=== PATIENT | male | born 1970 | race Asian ===

== ENCOUNTER 2019-01-18 13:34 | Outpatient (REF) | payer MEDICAID, SELFPAY ==
[2019-01-18 19:05] LABS: Calculated LDL 200 mg/dL; Cholesterol 279 mg/dL; HDL Cholesterol 54 mg/dL; Triglyceride 125 mg/dL
== END 2019-01-18 13:54 ==
LOC: NCHCN 13:34
PROVIDERS: Visit Provider Family Medicine
DX: Z13.1 Encounter for screening for diabetes mellitus (principal); Z13.220 Encounter for screening for lipoid disorders; Z00.00 Encounter for general adult medical examination without abnormal findings
CPT/HCPCS: 80061; 83036

== ENCOUNTER 2022-09-03 13:34 | Outpatient (REF) | payer MEDICAID, SELFPAY ==
[2022-09-03 16:12] LABS: HGB 13.5 g/dL (13.5-17.5); MCH 21.1 pg (27.0-33.0); MPV 10.2 fL (8.0-11.0); Platelet Count 279 10^3/uL (130-400); RDW 13.9 % (11.8-14.1); RDW-SD 34.1 fL; WBC 7.07 10^3/uL (4.4-10.8)
[2022-09-03 16:36] LABS: Iron 113 ug/dL (65-175); Total Iron Binding Capacity 250 ug/dL (250-450); Transferrin Sat 45 % (20-55)
[2022-09-03 16:37] LABS: Calculated LDL 209 mg/dL (<100); Cholesterol 293 mg/dL (<200); Ferritin 787 ng/mL (26-388); HDL Cholesterol 56 mg/dL (40-60); Triglyceride 142 mg/dL (<150)
[2022-09-03 19:04] LABS: MCV 70 fL (80-95)
== END 2022-09-03 13:35 | disposition home or self-care (01) ==
LOC: NCHCN 13:34
PROVIDERS: PCP Family Medicine; Visit Provider Family Medicine
DX: D50.9 Iron deficiency anemia, unspecified (principal); E78.5 Hyperlipidemia, unspecified
CPT/HCPCS: 80061; 85027; 82728; 83540; 83550

== ENCOUNTER 2022-10-15 11:08 | Emergency (ER) | payer MEDICAID, SELFPAY ==
[2022-10-15 11:10] VITALS: BP 114/85; PULSE 74; RESP 20; TEMP 37; O2SAT 99
--- NOTE | 2022-10-15 11:29 | ED.GENADUL_ITS ---
Discharge Plan Disposition Patient Disposition: Home Condition: Stable Discharge Details Clinical Impression: Lumbar back pain Primary Care Provider: Moses Sarmiento ED Provider: Jose Dickson Home Meds and New Rx's Prescriptions: New cyclobenzaprine 10 mg tablet 10 mg PO TID PRNQty: 20 0RF Discharge Instructions Additional Instructions: your xray today looks normal follow up with your primary care provider within 1-[address] or drink alcohol if you take the prescribed medication as it can make you drowsy you can take 1000mg tylenol and 600mg ibuprofen every 6 hours for pain as needed if you feel more ill, have severe worsening pain or new symptoms such as abdominal pain or difficulty urinating return to the emergency department Medical Decision Making 51 yo male who denies chronic medical problems comes in with 1 month of nontraumatic lower back pain. History obtained using [employer] bilingual interpreter via video chat. He denies known fevers, chills, abdoman pain, n/v. No ivdu, no urinary retention. He localizes the pain to the left lower back and is tender in this area. no saddle anesthesia, normal reflexes in the legs with intact sensation and pulses. Suspect muscle spasm vs strain, will treat with lidocaine patch, toradol and obtain xrays. No findings on exam or history to suggest cauda equina, spinal epidural abscess or osteo. xray unremarkable, pt feels better, discussed results using bilingual interpreter, no new pain or symptoms, advised likely muscle strain vs disc herniation, stable for d/c and advised to f/u with pcp within 1-2 weeks, return precautions given. Google translate used for d/c instructions but unfortunately due to the special characted used in [employer] could not be copied into the d/c instructions on [employer], Differential Diagnosis Differential Diagnosis: strain, sciatica HPI General Mode of arrival: ambulatory . Date/Time Provider Initiated Documentation: 10/15/22 11:09 . Limitations to Documentation: language barrier . Information obtained by: patient . History of Present Illness 51 year old M presents to the emergency department with the chief complaint of lower back pain, described as moderate, Patient started experiencing this week(s) (2) and it has been constant. No relieving factors improve symptom(s), No exacerbating factors reported . Patient notes no other symptoms.. Related Data Home Medications Medication Instructions Recorded Confirmed cyclobenzaprine 10 mg tablet 10 mg PO TID PRN #20 tabs 10/15/22 Previous Rx's Medication Instructions Recorded cyclobenzaprine 10 mg tablet 10 mg PO TID PRN #20 tabs 10/15/22 Allergies Allergy/AdvReac Type Severity Reaction Status Date / Time eggplant Allergy Unknown unknown Verified 10/15/22 11:15 General Stated Complaint: Nk/Back Pain ZEB: 4 Review of Systems All systems reviewed & are unremarkable except as noted in HPI and below Constitutional Constitutional: Denies chills, Denies fever(s) and Denies weakness Cardiovascular Cardiovascular: Denies chest pain and Denies dyspnea Respiratory Respiratory: Denies cough and Denies dyspnea Gastrointestinal Gastrointestinal: Denies abdominal pain, Denies nausea and Denies vomiting Integumentary/Breasts Skin/Breast: Denies rash Neurologic Neurologic: Denies weakness Psychiatric Psychiatric: Denies depression PFSH All Active Problems (Updated 10/15/22 @ 13:34 by Jose Dickson MD) Lumbar back pain (Acute) Epigastric pain (Acute) Blood in stool (Acute) Plantar fasciitis (Acute) Osteoarthritis (Chronic) Medical History (Updated 10/15/22 @ 13:34 by Jose Dickson MD) Nephrolithiasis Family History (Updated 02/01/19 @ 13:54 by Jasmin Tatum MD) Father Diabetes Social History Smoking/Tobacco Use Status: Never Smoking risk assessment performed?: Yes Current gender identity: male Exam Const General: no acute distress Orientation: alert HENMT Head: normal to inspection Ears: external ears normal General nose exam: external nose normal Mouth: moist mucous membranes Eyes General: appearance normal, both eyes and all related structures Neck Neck: normal visual inspection Resp Effort & Inspection: normal respiratory effort and able to speak in complete sentences Cardio Rate: regular rate GI Palpation: soft and nontender Back/Spine/Pelvis Back: no CVA tenderness Skin General skin exam: no rashes or lesions noted Neuro General: patient alert and patient oriented x3 Extrem General: normal to inspection Psych Mental Status: mental status grossly normal Course Vital Signs Vital signs: Vital Signs Temperature 37.0 C 10/15/22 11:10 Pulse 74 10/15/22 11:10 Respiratory Rate 20 10/15/22 11:10 Blood Pressure 114/85 10/15/22 11:10 Pulse Oximetry 99 10/15/22 11:10 Temperature 37.0 C 10/15/22 11:10 Temperature Source Oral 10/15/22 11:10 Pulse 74 10/15/22 11:10 Respiratory Rate 20 10/15/22 11:10 Respiratory Effort Normal 10/15/22 11:16 Blood Pressure 114/85 10/15/22 11:10 Blood Pressure Position Sitting 10/15/22 11:10 Pulse Oximetry 99 10/15/22 11:10 Oxygen Delivery Method Room Air 10/15/22 11:10 Oxygen Flow Rate 0 10/15/22 11:10 Pain Level 6 10/15/22 11:10
--- NOTE | 2022-10-15 11:45 | DI.RAD_ITS ---
Exam(s) XR LUMBAR SPINE COMPLETE EXAM: XR LUMBAR SPINE COMPLETE CLINICAL HISTORY: lumbar pain. TECHNIQUE: 2D digital imaging was performed of the lumbar spine. Five images were obtained. AP, la teral, right oblique, left oblique and L5-S1 spot views were obtained. COMPARISON: No exams were available for comparison FINDINGS: BONES: No fracture or destructive lesion. Small osteophytes are seen at L4-L5. No facet hypertrophy i dentified. There are rudimentary ribs at L1. DISKS: Intervertebral disc spaces are maintained. ALIGNMENT: Lumbar spinal alignment is within normal limits. No spondylolysis or spondylolisthesis. SOFT TISSUE: Normal. IMPRESSION: No acute abnormality. DATA REPOSITORY: RADIATION DOSE DELIVERED:
[2022-10-15] MEDS: Ketorolac 15 MG/ML VIAL IM (12:17)
[2022-10-15] MEDS: Lidocaine 5% Patch 1 PATCH TP (12:17)
== END 2022-10-15 13:45 | disposition home or self-care (01) ==
PROVIDERS: Emergency Provider Emergency Medicine; PCP Family Medicine
DX: M54.50 Low back pain, unspecified (principal)
CPT/HCPCS: 96372; 99284; 72110; J1885

== ENCOUNTER → 2022-11-18 02:45 | Outpatient (CLI) | payer MEDICAID, SELFPAY ==
--- NOTE | 2022-11-18 12:20 | DI.MRI_ITS ---
Exam(s) MR LUMBAR SPINE WO EXAM: MR LUMBAR SPINE WO CLINICAL HISTORY: BACK PAIN, M54.9. TECHNIQUE: Multiplanar multisequence MRI of the Lumbar spine was performed. COMPARISON: CR XR LUMBAR SPINE COMPLETE from 10/15/2022 FINDINGS: There is transitional anatomy here. Vertebral counting will coincide with naming on the recent plain films of 10/15/2022. Conus medullaris is at normal level. There is no evidence of conus mass nor subjacent clumping of in trathecal nerve roots to suggest arachnoiditis. The distal thecal sac appears unremarkable.There is no evidence of Tarlov intrasacral cysts nor other significant findings within the sacral canal Bones:There are no fractures nor ominous osseous lesions in the lumbar vertebral bodies and visualize d sacrum. With respect to the individual levels... T12-L1: Unremarkable L1-2: Normal disc height and signal. No disc herniation nor central canal stenosis.No foraminal steno sis L2-3: Normal disc height. No disc herniation nor central canal stenosis.No foraminal stenosis.No face t arthropathy. L3-4: Normal disc height. No disc herniation or central canal stenosis.No foraminal stenosis.No face t arthropathy. L4-5: Normal disc height. However, there is a posterolateral left disc protrusion in the lateral asp ect of the left lateral recess and floor of the exiting left neural foramen. This extends posteriorl y 3 mm and is approximately 12 mm wide. There is no prominent left neural foraminal stenosis at this level,. Exiting right neural foramen widely patent. Central canal dimensions are lower normal. No significant facet arthropathy evident. L5-S1: Normal disc height. Posteriorly there is broad annular bulging central and right-sided extend ing posteriorly 3 mm and approximately 1.6 cm wide. This slightly indents the thecal sac. Also exte nds into the floor of the exiting left neural foramen. Central canal dimensions exhibit mild stenosi s. The annular bulging does not cause significant foraminal stenosis on the left side. The opposite -exiting right neural foramen is widely patent. No significant facet arthropathy evident. Transitional vertebra-sacrum: This transitional disc space exhibits normal hydration signal with no d isc herniation or canal stenosis evident at this level and no foraminal stenosis. No facet arthropat hy. Soft tissues: paraspinal soft tissues appear unremarkable. IMPRESSION: 1. There are 2 left-sided disc protrusions here as described above, these at 1 level above the transi tional vertebra and 2 level above the transitional vertebra. No prominent central spinal canal steno sis and no prominent foraminal stenosis. 2. Please note that if this patient is ever to be a surgical candidate, and given the transitional ve ry into data me here close correlation of the plain films and lumbar sacral MRI is recommended so as to although oil operating on the wrong level(s). DATA REPOSITORY:
== END ==
PROVIDERS: PCP Family Medicine; Visit Provider Nurse Practitioner Family
DX: M51.26 Other intervertebral disc displacement, lumbar region (principal)
CPT/HCPCS: 72148

== ENCOUNTER 2023-12-22 10:25 | Outpatient (REF) | payer MEDICAID, SELFPAY ==
--- OUTSIDE RECORDS SUMMARY | 2023-12-22 10:37 | XMS_ITS | Encounter Summary ---
[place] [address] Care Team Providers Care Cat Scan Tech Name Role Phone Moses Sarmiento MD Primary Care Provider [phone] Reason for Referral * Consultation (Routine) - Closed Specialty Diagnoses / Procedures Referred By Contedson t Referred To Contact [facility] Diagnoses Intervertebral disc disorders with radiculopathy, lumbar region Lumbar disc protrusion/MRI 11/18/[address] [facility] Gauri Fernandez APRN [address] [place] [address] [facility] [place] [address] Referral ID Status Reason Start Date Expiration Date V isits Requested Visits Authorized [id number] Closed Consult, Test & Treat PCP Updated and/or Approved 12/09/2022 12/09/2023 1 1 Encounter Details Date Type Department Care Team (Late st Contact Info) Description 12/09/2022 Transcribe Orders eDH Incoming Referrals [phone] Gauri Fernandez APRN [address] [place], [place] [address] Lumbar herniated disc Social History Tobacco Use Types Packs/Day Years Used Date Smoking Tobacco: Never Assessed Sex and Gender Information Value Date Recorded Sex Assigned at Not on file Gender Identity Not on file Sexual Orientation Not on file documented as of this encounter Plan of Treatment Scheduled Referrals Name Type Priority Associated Diagnoses Orde r Schedule Referral to Spine Center Outpatient Referral Routine Lumbar herniated disc Ordered: 12/09/2022 documented as of this encounter Visit Diagnoses Diagnosis Lumbar herniated disc Displacement of lumbar intervertebral disc without myelopathy documented in this encounter Care Teams Cat Scan Tech Relationship Specialty Start Date End Date Moses Sarmiento MD PCP - General Family Medicine 12/09/22 documented as of this encounter
--- OUTSIDE RECORDS SUMMARY | 2023-12-22 10:37 | XMS_ITS | Clinical Summary ---
Author Organization [facility] [place] [address] Care Team Providers Care Inspector [employer]ating [employer] Refrigeration Name Role Phone Moses Sarmiento MD Primary Care Provider [phone] Social History Tobacco Use Types Packs/Day Years Used Date Smoking Tobacco: Never Assessed Sex and Gender Information Value Date Recorded Sex Assigned at Not on file Gender Identity Not on file Sexual Orientation Not on file Plan of Treatment Health Maintenance Due Date Last Done Comments CT Colonography 1972 Colonoscopy 1972 Colorectal Cancer Screening 1972 FIT DNA 1972 FIT 1972 Sigmoidoscopy (10 year) with FIT yearly 1972 Sigmoidoscopy 1972 HIV screen 1990 Hepatitis C Screening 1990 Lipid Screening 1990 Hepatitis B vaccine (0-59 yrs) (1) 10/25/1991 Tetanus/Diphtheria/Pertussis Vaccines (1 - Tdap) 10/24 Zoster vaccine (1 of 2) 2022 Covid-19 Vaccine (1 - 2022-24 season) 2023 Influenza (Flu) vaccine (1 o f 1 - Influenza standard series) 10/19/2023 Care Teams Inspector Heating And Refrigeration Relationship Specialty Start Date End Date Moses Sarmiento MD PCP - General Family Medicine 12/09/22
--- OUTSIDE RECORDS SUMMARY | 2023-12-22 10:37 | XMS_ITS | Continuity of Care Document ---
Author Organization [place] - [facility] Address [address] [place] [address] Care Team Providers Care Access Consultant Name Role Phone YAIRDODIE Boyer Primary Care Provider Assessment Encounter Date Assessment Date Assessment LastModified by Organization Details LastModified Time 12/22/2023 12/22/2023 The total time devoted to today's encounter, including both the jpdw-tk-sclx time with the patient and/or family/caregi belkys and yuu-cxtk-zf-f romulo time I personally spent is 40 minutes. [email or web address] Not available 12/22/2023 10:04:41 Plan of Treatment Reminders Order Date Submit Date Provider Last Modified By Organization Details Last Modified Time Details Appointments Follow Up 30 2023 08:30A M Dodie Mazariegos Not available Not available Not available Office Visit 40 2024 10:10A M Dodie Mazariegos Not available Not available Not available Lab lipid panel, serum - 1 tiger and 1 lav tube collected from right ac, pt tolerated well. 2023 024 [email or web address] [facility] (Registration ), [address] [place] [address] [place], [address], 12/22/2023 09:50:26 CMP, serum or plasma - 1 tiger and 1 lav tube collected from right ac, pt tolerated well. 2023 024 [email or web address] [facility] (Registration ), [address] [place] [address] [place], [address], 12/22/2023 09:50:26 HbA1c (hemoglob in A1c), blood - 1 tiger and 1 lav tube collected from right ac, pt tolerated well. [address] [facility] (Registration ), [address] [place] [address] [place], [address], 12/22/2023 09:50:26 magnesium , serum or plasma - 1 tiger and 1 lav tube collected from right ac, pt tolerated well. [address] [facility] (Registration ), [address] [place] [address] [place], [address], 12/22/2023 09:50:26 iron + TIBC + ferritin, serum - 1 tiger and 1 lav tube collected from right ac, pt tolerated well. [address] [facility] (Registration ), [address] [place] [address] [place], [address], 12/22/2023 09:50:26 CBC w/ auto diff - 1 tiger and 1 lav tube collected from right ac, pt tolerated well. [address] [facility] (Registration ), [address] [place] [address] [place], [address], 12/22/2023 09:50:26 Referral physical therapist referral - Patient speaks only a foreign language - Cantonese . Understan ds simple Iraqi. Interpret er required. Patient prefers Friday appointme nts (day off from work). [address] Physical Therapy Department - Direct, [address] [facility], [place], [address], 12/22/2023 10:04:22 Procedures None recorded. Surgeries None recorded. Imaging None recorded. Medication Orders rosuvasta tin 20 mg tablet 2023 [facility], [address] [facility], [place], [address], 12/22/2023 10:00:39 Patient TargetsNo targets recorded. Patient Instructions Encounter Date Encounter Id Patient Instructions Last Modified By Organization Details Last Modified Time 12/22/2023 [id number] When You Want to Lose Weight: Care Instructions Not available 12/22/2023 10:00:32 iron deficiency anemia: care instructions [email or web address] Not available 12/22/2023 10:00:32 Follow up in 3 months - 03-22-24 at 10:10 AM Please call [facility] to scheduled your colonoscopy. I will also call [facility] to help the process. [facility] - [phone] [facility], [address] [place] [address] Referral for PHYSICAL THERAPY to help your back - expect a phone call soon to schedule an appointment. STOP your current colesterol medication for at least 3 weeks. Your leg cramping should go away. RESTART your new cholesterol medication in 3 weeks - I prescribed a new cholesterol medication to try. Blood work today - I am checking you cholesterol, blood sugar, kidney and liver function. Please call if you have questions. Please call if you do not hear from physical therapy. Please call if you do not hear from gastroenterology about scheduling your colonoscopy. [email or web address] Not available 12/22/2023 09:31:25 Reason for Referral Physical Therapist Referral for Radiculopathy due to lumbar intervertebral disc disorder Patient speaks only a foreign language - Cantonese. Understands simple Iraqi. Polisher And Sander required. Patient prefers Friday appointments (day off from work). Referring Physician: Dodie Mazariegos, Family Medicine, Encounter Date: 12/22/2023 Problems Name Problem SNOMED Code Status Onset Date Resolution Date Notes Provider Name and Address Organization Details Recorded Time Bilatera l cramp of muscle of lower limbs 92313383020 924698 Active 2023 MARIA GUADALUPE RODRIGUEZ [address], [place], [address] , [facility] 08:55:36 Overweig 845486126 Active 2023 MARIA GUADALUPE RODRIGUEZ [address], [place], [address] , [facility] 4 08:55:48 Adult health examinat ion Completed 201806/16/[address], [facility] [address] , [facility] 4 15:18:06 Melena 8288126 Active [address], [facility] [address] , [facility] 4 15:17:19 Overweig ht 207647363 Completed 201806/16/[address], [facility] [address] [place] [address] 4 08:55:48 Idiopath ic osteoart hritis 714947741 Active 2018 Hand [address], [facility] [address] , [facility] 4 15:19:39 Screenin g for malignan t neoplasm of colon Completed 201801/19/2019 Problem Code: Z12.11; Problem Code Type: ICD-10; Not Available [facility] 3 05:03:10 Hyperlip idemia 38711896 Active [address], [facility] [address] , [facility] 4 15:17:11 Iron deficien cy anemia 37302574 Active [address], [facility] [address] , [facility] 4 15:17:14 History of urinary stone 297658395 Completed 202206/16/[address], [facility] [address] , [facility] 4 15:18:43 Pain in thoracic spine 677790867 Active [address], [address] 4 15:17:22 Body mass index 25-29 - overweig ht 043293684 Completed 201811/13/2022 Problem Code: Z68.28; Problem Code Type: ICD-10; Not Available [facility] 3 05:03:13 Plantar fascial fibromat osis 56200569 Completed 201809/03/2022 Problem Code: M72.2; Problem Code Type: ICD-10; Not Available [facility] 3 05:03:13 Radiculo ekta due to lumbar interver tebral disc disorder 47986535588 9105 Active [address], [address] 4 15:17:26 Increase d body mass index 58329081 Active [address], [address] 4 15:17:58 History of calculus of kidney 910230781 Active [address], [address] 4 15:18:[address] 061120887 Active 2023 Cantrigoberto Lemusa nds simple Iraqi. Interpre ter required . [address]IA [address]AL[address] Dr, [address] 4 15:36:28 Problem Notes None recorded. Medical Equipment None Reported. Allergies Allergen ID Allergen Name Allergen Category Reaction Reaction Severity Criticality Documentation Date Start Date Code Code System Note Provider Name and Address Organization Details Recorded Time 66776 eggplant allergeni c extract food rash moderate Not available 12/27/20222018 92077 1 RxNorm rash Not Available [facility] 16:25:52 Medications Name Sig Start Date Stop Date Status Note LastModified by Organization Details LastModified Time cyclobenzap rine 10 mg tablet TAKE 1 TABLET BY MOUTH THREE TIMES DAILY NEEDED 12/21 completed Not Available Not Available Not Available atorvastati n 40 mg tablet TAKE 1 TABLET BY MOUTH ONCE DAILY IN THE EVENING FOR CHOLESTER OL active Not Available Not Available No t Available prednisone 20 mg tablet TAKE 3 TABLETS BY MOUTH ONCE DAILY FOR 3 DAYS THEN 2 ONCE DAILY FOR 3 DAYS THEN 1 ONCE DAILY FOR 5 DAYS 06/15 completed Not Available Not Available Not Available nabumetone 500 mg tablet TAKE 1 TABLET BY MOUTH TWICE DAILY NEEDED WITH FOOD FOR PAIN 12/21 completed Not Available Not Available Not Available rosuvastati n 20 mg tablet Take 1 tablet every day by oral route at bedtime for 90 days, for cholester ol. 2023 active Not Available Not Available Not Avai lable Vitals Date Recorded Body height Body mass index (BMI) Body weight Body temperature Heart rate Oxygen saturation Oxygen saturation in Arterial blood by Pulse oximetry Systolic blood pressure Diastolic blood pressure Provider Name and Address Organization Details Last Updated DateTime 163.58 cm 28.7 kg/m2 24815.2 1 g 98.1 [degF] 74 /min 98 % 98 % 117 mm[Hg] 70 mm[Hg] Sandra Varghese MA [facility] 08:36:16 Social History Question Answer Notes LastModified by Organizat ion Details LastModified Time Tobacco Smoking Status Never Smoker Sandra Varghese MA [facility], [facility] 06/16/2023 09:43:07 What Was The Date Of Your Most Recent Tobacco Screening? 06/16/2023 Information not available 06/16/2023 Has Tobacco Cessation Counseling Been Provided? No [email or web address] Information not available 06/16/2023 Do You Or Have You Ever Used Any Other Forms Of Tobacco Or Nicotine? No Information not available 06/16/2023 Sex: Male Functional Status None recorded. Mental Status None recorded. Family History Relationship Description Onset Age of this Age Resolved Age Notes LastModified by Organization Details LastModified Time Father Family history of diabetes mellitus type 1 [email or web address] Not available 2022 04:00:52 Medical History No medical history recorded. Immunizations Vaccine Type Date Status Provider Name a nd Address Organization Details Recorded Time Tdap 09/03/2022 completed Not Available [facility] 06:24:17 Past Encounters Encounter ID Performer Location Encounter Start Date Encounter Closed Date Diagnosis/Indication Diagnosis SNOMED-CT Code Diagnosis ICD10 Code [id number] MARIA GUADALUPE RODRIGUEZ [address] [place] [address] 12/22/2023 08:07:38 12/22/2023 09:29:25 Melena 7110501 K92.1 Iron defic iency anemia 66781480 D50.9 Radiculopa thy due to lumbar intervertebral disc disorder 0675138713 24529 M51.16 Hyperlipidemia 37056696 E78.5 Need for seismic interpreter 315 288793 Z76.89 Overweight 195116627 E66 .3 Bilateral cramp of muscle of lower limbs 1468740267 4860014 R25.2 Diabetes m ellitus screening 181466638 Z13.1 Health Concerns Section Related Observation LastModified by Organization Detai ls LastModified Time None Recorded Concern Status LastModified by Organization Details LastModified Time None Recorded Payers Encounter Date Sequence Insurance Name Policy Number Policy Gamble Covered Member ID Gamble Member ID Guarantor Name 12/22/2023 1 [facility] (MEDICAID) Armando Badillo [id number] Armando Badillo Notes Date Note Type Note Provider Name and Address Organization Details Recorded Time 12/22/2023 text/html HPI Notes: Sudhir presents with spouse to [facility] today for chronic care follow up, with a focus on cholesterol + acute complaint of leg cramping. Recently established care with id 06-16-23. [place] language Cantonese, understands simple Iraqi, requires an seismic interpreter. Established care [facility] 2019. Works in the food industry. Overdue for colon cancer screening, history of recurrent melena, mild iron deficiency anemia. Additional medical history to include dyslipidemia (LDL greater than 200 in 2022, started statin therapy). Overall feels well. Weight stable. C/o of mild leg cramping in the AM over the past year + recurrent challenges with back pain. Denies any chest pain, shortness of breath, dyspnea on exertion, abdominal pain, nausea vomiting or diarrhea DODIE MAZARIEGOS, [employer] [address], [place], [address], [facility]. 12/22/2023 10:04:55
[2023-12-22 15:45] LABS: Abs Immature Grans 0.03 10^3/uL (0.0-0.06); Absolute Basophil Count 0.04 10^3/uL (0.0-0.2); Absolute Eosinophil Count 0.19 10^3/uL (0.0-0.7); Absolute Lymphocyte Count 2.12 10^3/uL (1.2-3.4); Absolute Neutrophil Count 5.68 10^3/uL (1.2-6.7); Basophils % 0.5 %; Eosinophils % 2.2 %; HCT 46.3 % (40.0-50.0); HGB 13.7 g/dL (13.5-17.5); Immature Grans % 0.3 %; Lymphocytes % 24.2 %; MCH 21.1 pg (27.0-33.0); MCHC 29.6 % (32.0-36.0); MCV 72 fL (80-95); MPV 9.9 fL (8.0-11.0); Neutrophils % 64.8 %; Platelet Count 272 10^3/uL (130-400); RBC 6.48 10^6/uL (4.36-5.78); RDW 13.7 % (11.8-14.1); RDW-SD 34.1 fL; WBC 8.76 10^3/uL (4.4-10.8)
[2023-12-22 15:54] LABS: Iron 94 ug/dL (65-175); Total Iron Binding Capacity 252 ug/dL (250-450); Transferrin Sat 37 % (20-55)
[2023-12-22 16:07] LABS: Diff Comment Diff Reviewed; Microcytosis 2+
[2023-12-22 16:10] LABS: Hemoglobin A1C 5.2 % (<5.7)
[2023-12-22 16:22] LABS: ALT 59 U/L (16-63); AST 34 U/L (15-37); Albumin 4.1 g/dL (3.4-5.0); Alkaline Phosphatase 60 U/L (46-116); Anion Gap 7.8 mmol/L (3-11); BUN 16 mg/dL (7-18); Bilirubin, Total 1.04 mg/dL (0.2-1.0); CO2 30.2 mmol/L (21.0-32.0); Calcium 9.3 mg/dL (8.5-10.1); Calculated LDL 96 mg/dL (<100); Chloride 106 mmol/L (98-107); Cholesterol 182 mg/dL (<200); Estimated GFR 91.12 (mL/min/1.73m2); Ferritin 815 ng/mL (26-388); Glucose 98 mg/dL (74-106); HDL Cholesterol 66 mg/dL (40-60); Magnesium 2.4 mg/dL (1.8-2.4); Potassium 3.9 mmol/L (3.5-5.1); Sodium 144 mmol/L (136-145); Total Protein 7.8 g/dL (6.4-8.2); Triglyceride 104 mg/dL (<150)
== END 2023-12-22 10:26 | disposition home or self-care (01) ==
LOC: NCHCN 10:25
PROVIDERS: PCP Family Medicine; Visit Provider Nurse Practitioner Family
DX: Z13.1 Encounter for screening for diabetes mellitus (principal); R25.2 Cramp and spasm; E78.5 Hyperlipidemia, unspecified; D50.9 Iron deficiency anemia, unspecified
CPT/HCPCS: 80053; 80061; 82728; 83036; 83540; 83550; 83735; 85025